=== PATIENT | male | born 1955 | race Caucasian/White ===

== ENCOUNTER 2021-07-11 10:58 | Emergency (ER) | payer MEDICARE, BC ==
[2021-07-11] MEDS ORDERED: Ketorolac 30 MG/ML SDV IM STA (11:42)
[2021-07-11] MEDS ORDERED: Acetaminophen/oxyCODONE 325-5 MG Tab PO STA (11:43)
--- NOTE | 2021-07-11 11:52 | EDM.PDOC ---
ED HPI GENERAL MEDICAL PROBLEM - General Stated Complaint: low back pain Time Seen by Provider: 07/11/21 11:00 Source of Information: Reports: Patient, Family History Limitations: Reports: No Limitations - History of Present Illness INITIAL COMMENTS - FREE TEXT/NARRATIVE: Patient presented to the ED because of pain where the morphine pump was inserted on the left side of the lumbar spine. It was placed yesterday and since then the pain is getting worse. He rate his pain 10/10, with associated fever,chills and has a chronic cough. ED ROS GENERAL - Review of Systems Review Of Systems: See Below Constitutional: Reports: No Symptoms HEENT: Reports: No Symptoms Respiratory: Reports: No Symptoms Cardiovascular: Reports: No Symptoms Endocrine: Reports: No Symptoms GI/Abdominal: Reports: No Symptoms : Reports: No Symptoms Musculoskeletal: Reports: No Symptoms, Back Pain Skin: Reports: No Symptoms Neurological: Reports: No Symptoms ED EXAM,LOWER BACK PAIN/INJURY - Physical Exam Exam: See Below Exam Limited By: No Limitations General Appearance: Alert, No Apparent Distress Ears: Normal External Exam, Normal Canal, Hearing Grossly Normal Nose: Normal Inspection, Normal Mucosa Throat/Mouth: Normal Inspection, Normal Lips, Normal Teeth Head: Atraumatic, Normocephalic Neck: Normal Inspection, Supple, Non-Tender, Full Range of Motion Respiratory/Chest: No Respiratory Distress, Lungs Clear, Normal Breath Sounds, No Accessory Muscle Use, Chest Non-Tender Cardiovascular: Normal Peripheral Pulses, Regular Rate, Rhythm, No Edema, No Gallop, No JVD, No Murmur, No Rub GI/Abdominal: Normal Bowel Sounds, Soft, Non-Tender, No Organomegaly, No Distention Back Exam: Normal Inspection, Muscle Spasm, Vertebral Tenderness Extremities: Normal Inspection, Normal Range of Motion, Non-Tender Course - Vital Signs Text/Narrative:: Toradol 60 mg IM x1 Percocet 5 mg, 2 PO x1 - Orders/Labs/Meds Meds: Medications Discontinued Medications Generic Name Dose Route Start Last Admin Trade Name Magaly PRN Reason Stop Dose Admin Ketorolac Tromethamine 60 mg 07/11/21 11:42 Ketorolac 30 Mg/Ml Sdv IM 07/11/21 11:43 NOW STA Oxycodone/Acetaminophen 2 tab 07/11/21 11:43 Acetaminophen/Oxycodone 325-5 Mg Tab PO 08/10/21 11:44 NOW STA Departure - Departure Time of Disposition: 11:55 Disposition: DC/Tfer to Other 70 Condition: Good Clinical Impression: Post-operative pain - Discharge Information Instructions: Acute Pain, Adult Additional Instructions: Please read discharge instructions on post op pain [facility] [place]
== END 2021-07-11 12:10 | disposition other institution (70) ==
LOC: FB.ED 10:58
DX: G89.18 Other acute postprocedural pain (principal); M54.5 Low back pain; R50.9 Fever, unspecified; R05 Cough
CPT/HCPCS: 96372; 99284; A9270; J1885

== ENCOUNTER 2023-04-07 22:29 | Emergency (ER) | payer MEDICARE, BC ==
[2023-04-07] MEDS ORDERED: Sodium Chloride 0.9% 10 ML Syringe FLUSH PRN (22:39)
[2023-04-07] MEDS ORDERED: Ondansetron 4 MG/2 ML SDV IVPUSH ONE (22:57)
[2023-04-07] MEDS ORDERED: Albuterol/Ipratropium 3.0-0.5 MG/3 ML Neb Soln NEB ONE (22:57)
[2023-04-07] MEDS ORDERED: Sodium Chloride 0.9% 1,000 ML IV SCH (23:00)
[2023-04-07 23:29] LABS: BLOOD UREA NITROGEN,BUN 12 mg/dL (7-18); CALCIUM 9.1 mg/dL (8.6-10.2); CARBON DIOXIDE,CO2 32 mmol/L (21-32); CHLORIDE,CL 101 mmol/L (100-110); CREATININE 1.2 mg/dL (0.70-1.30); EST CRCL DRUG DOSING (CG) 59.99 mL/min; ESTIMATED GFR 65 mL/min (>60); GLUCOSE RANDOM 134 mg/dL (80-116); POTASSIUM,K 4.4 mmol/L (3.5-5.3); SODIUM,NA 140 mmol/L (135-145)
[2023-04-07 23:31] LABS: BASOPHILS PERCENT AUTO 0.4 % (0.3-3.8); EOSINOPHILS ABSOLUTE AUTO 0.1 x10-3/uL (0.0-0.6); EOSINOPHILS PERCENT AUTO 2.6 % (0.1-6.8); HEMATOCRIT 31.8 % (38.3-50.1); HEMOGLOBIN 10.4 g/dL (12.9-17.7); LYMPHOCYTES ABSOLUTE AUTO 0.8 x10-3/uL (0.5-4.5); LYMPHOCYTES PERCENT AUTO 35.8 % (15.8-45.3); MEAN CORPUSCULAR HEMOGLOBIN 29.4 pg (27.0-33.3); MEAN CORPUSCULAR HGB CONC 32.8 g/dL (28.7-35.3); MEAN CORPUSCULAR VOLUME 89.7 fL (80.8-98.7); MEAN PLATELET VOLUME 10.6 fL (6.7-11.0); MONOCYTES ABSOLUTE AUTO 0.1 x10-3/uL (0.0-1.2); MONOCYTES PERCENT AUTO 4.1 % (5.5-15.2); NEUTROPHILS ABSOLUTE AUTO 1.2 x10-3/uL (1.7-6.9); NEUTROPHILS PERCENT AUTO 57.1 % (40.3-71.8); PLATELET COUNT,PLT 114 x10(3)uL (117-477); RED BLOOD CELL COUNT 3.54 x10(6)uL (3.90-5.90); RED CELL DISTRIBUTION WIDTH 16.3 % (12.4-15.0); WHITE BLOOD CELL COUNT,WBC 2.2 x10-3/uL (3.2-10.1)
[2023-04-07 23:35] LABS: ALANINE AMINOTRANSFERASE,ALT 32 U/L (12-36); ALBUMIN 3.6 g/dL (3.2-4.6); ALKALINE PHOSPHATASE 75 IU/L (56-112); ASPARTATE AMNIOTRANSFERASE,AST 24 IU/L (5-25); BILIRUBIN TOTAL 0.5 mg/dL (0.1-1.3); PROTEIN TOTAL,TP 7.1 g/dL (6.0-8.0)
[2023-04-07 23:39] LABS: LACTIC ACID 1.9 mmol/L (0.4-2.0)
[2023-04-08] MEDS ORDERED: Labetalol 20 MG/4 ML Syringe IVPUSH ONE (00:04)
[2023-04-08 00:05] LABS: INFLUENZA A NAA NEGATIVE (NEGATIVE); INFLUENZA B NAA NEGATIVE (NEGATIVE)
[2023-04-08 00:06] LABS: BILIRUBIN,URINE NEGATIVE (NEGATIVE); GLUCOSE,URINE NORMAL (NORMAL); KETONES,URINE NEGATIVE (NEGATIVE); LEUKOCYTE ESTERASE,URINE NEGATIVE (NEGATIVE); NITRITE,URINE NEGATIVE (NEGATIVE); OCCULT BLOOD,URINE NEGATIVE (NEGATIVE); PROTEIN,URINE NEGATIVE (NEGATIVE); UROBILINOGEN,URINE NORMAL (NEGATIVE)
[2023-04-08 00:09] LABS: CORONAVIRUS COVID-19 NAA NEGATIVE (NEGATIVE)
[2023-04-08 00:13] LABS: APPEARANCE,URINE CLEAR (CLEAR); BACTERIA,URINE RARE (NS); COLOR,URINE YELLOW (YELLOW); RBC,URINE 0-5 (0-5); SQUAMOUS EPITHELIAL CELLS,UR OCCASIONAL (NS,R,O); WBC,URINE 0-5 (0-5)
[2023-04-08] MEDS ORDERED: Piperacillin/Tazobactam 4.5 GM in Sodium Chloride 0.9% 100 ML IV STA (00:42)
== END 2023-04-08 01:44 ==
LOC: FB.ED 22:29
DX: C85.90 Non-Hodgkin lymphoma, unspecified, unspecified site (principal); D61.818 Other pancytopenia; D70.9 Neutropenia, unspecified; R50.81 Fever presenting with conditions classified elsewhere; Z20.822 Contact with and (suspected) exposure to COVID-19
CPT/HCPCS: 0240U; 36415; 71045; 80053; 81001; 83605; 85025; 86140; 87040; 94640; 96361; 96365; 96375; 99285; J2405; J2543; J3490; J7030; J7620